=== PATIENT | male | born 1940 | race Caucasian/White ===

== ENCOUNTER → 2023-03-17 08:01 | Outpatient (REF) | payer OTHER, SELFPAY | LOC: WOUND 08:01 | PROVIDERS: ATTENDING PHYSICIAN Surgery; REFERRING PHYSICIAN Internal Medicine | DX: L97.322 Non-pressure chronic ulcer of left ankle with fat layer exposed (principal); I87.2 Venous insufficiency (chronic) (peripheral); I73.9 Peripheral vascular disease, unspecified; N18.31 Chronic kidney disease, stage 3a; J98.4 Other disorders of lung; I50.32 Chronic diastolic (congestive) heart failure; I87.8 Other specified disorders of veins; M86.672 Other chronic osteomyelitis, left ankle and foot; I12.9 Hypertensive chronic kidney disease with stage 1 through stage 4 chronic kidney disease, or unspecified chronic kidney disease; Z79.899 Other long term (current) drug therapy; Z95.2 Presence of prosthetic heart valve | CPT/HCPCS: 11042; 99202; 99204 ==

== ENCOUNTER → 2023-05-27 09:39 | Outpatient (REF) | payer OTHER, SELFPAY | LOC: WOUND 09:39 | PROVIDERS: ATTENDING PHYSICIAN Surgery; REFERRING PHYSICIAN Internal Medicine | DX: L97.322 Non-pressure chronic ulcer of left ankle with fat layer exposed (principal); I87.2 Venous insufficiency (chronic) (peripheral); S51.812A Laceration without foreign body of left forearm, initial encounter; I73.9 Peripheral vascular disease, unspecified; Z79.899 Other long term (current) drug therapy; J98.4 Other disorders of lung; I50.32 Chronic diastolic (congestive) heart failure; I87.8 Other specified disorders of veins; Z95.2 Presence of prosthetic heart valve; N18.31 Chronic kidney disease, stage 3a; M86.672 Other chronic osteomyelitis, left ankle and foot; I13.0 Hypertensive heart and chronic kidney disease with heart failure and stage 1 through stage 4 chronic kidney disease, or unspecified chronic kidney disease; X58.XXXA Exposure to other specified factors, initial encounter | CPT/HCPCS: 11042 ==

== ENCOUNTER 2023-10-13 15:43 | Inpatient (IN) | payer OTHER, SELFPAY ==
[2023-10-13] VITALS (11 sets, daily range): BP systolic 121–144; BP diastolic 58–78; BMI 27.9
[2023-10-13 12:00] LABS: % Basophils 1.2 % (0-2); % Eosinophils 1.4 % (0-6); % Immature Granulocytes 0.7 % (0-0.5); % Lymphocytes 7.2 % (20.5-51.1); % Monocytes 8.7 % (1.7-9.3); % Neutrophils 80.8 % (42.2-75.2); Absolute Basophils 0.1 10^3/uL (0-0.2); Absolute Eosinophils 0.2 10^3/uL (0-0.7); Absolute Immature Granulocytes 0.1 10^3/uL (0-0.05); Absolute Lymphocytes 0.8 10^3/uL (1.2-3.4); Absolute Monocytes 0.9 10^3/uL (0.1-0.6); Absolute Neutrophils 8.6 10^3/uL (1.4-6.5); Hematocrit 30.8 % (39.0-52.0); Hemoglobin 9.9 g/dL (13.0-18.0); Mean Corp Hgb Conc. 32.1 g/dL (33.0-37.0); Mean Corpuscular Hgb 30.1 pg (27.0-31.0); Mean Corpuscular Volume 93.6 fL (80.0-94.0); Mean Platelet Volume 9.5 fL (7.4-10.4); Nucleated Red Blood Cells % 0 % (-); Platelet Count 443 10^3/uL (130-400); Red Blood Cell Count 3.29 10^6/uL (4.70-6.10); Red Cell Dist. Width 15.9 % (11.5-14.5); White Blood Cell Count 10.7 10^3/uL (4.8-10.8)
--- NOTE | 2023-10-13 12:16 | ED.GENMED ---
History of Present Illness
General
Chief Complaint: Breathing Problem
Source: patient
Exam Limitations: none
Time Seen by Provider: 10/13/23 12:09
Nursing documentation reviewed up to this point in time: agreed with
Travel History
Have you had any contact with someone who has COVID-19?: No
Do you have any symptoms of coronavirus? Fever > 100 degrees, chills, cough, shortness of breath, sore throat, loss of taste or smell, muscle aches, or headache?: No
History of Present Illness
History of Present Illness:
83-year-old male with history of neuropathy, CHF, A-fib, not anticoagulated, HTN, mitral valve repair, GERD, hypothyroid, prostate cancer presents stating he has had gradually increasing shortness of breath over the past week, swelling in his legs,
12 pound weight gain in the past week. He upped his Lasix from 20 mg to 30 mg daily in the past 2 days. He denies chest pain. Denies abdominal pain, nausea vomiting or diarrhea.
On the way out of his car to come in here, he scraped the right lower leg on the car door causing a laceration. He is unsure of his last tetanus immunization.
Past History
Past History
ED Past Medical History: Arrthythmia (Atrial fibrillation), Cancer, CHF, GERD and Other (History of pneumonia, urgency in urination, history of prostate cancer, arthritis, degenerative joint disease, history of fractured ankle, gout); Negative CAD
ED Past Surgical History: Other (hernia, left ankle surgery, excision of benign lesion of the pancreatic tail, incisional hernia repair)
Social History
Tobacco: Non-smoker
Alcohol: None
Drug: None
Personal:
Employment: Retired
Family History
Family History: Hypertension; Negative Early CAD
Review of Systems
Review of Systems
Allergies reviewed?: Yes
All Other Systems: ROS reviewed and negative except as documented in HPI and ROS
Constitutional: Reports fatigue; Denies fever
Respiratory: Reports trouble breathing (Increasing short of breath over the past week); Denies cough
Cardiac: Denies chest pain, diaphoresis, palpitations or syncope
ABD/GI: Denies abdominal pain, nausea, vomiting or diarrhea
: Denies dysuria, frequency or difficulty voiding
Musculoskeletal: Reports edema
Skin: Reports other (Cut right lower extremity, chronic wound left lateral ankle.)
Neurological: Reports no symptoms
Phy Exam
Physical Exam
Physical Exam:
GENERAL: No acute distress. A&Ox3.
CONSTITUTIONAL: Afebrile.
EYES: Clear, conjunctivae normal
ENMT: moist mucus membranes, Pharynx nl
RESPIRATORY: Regular respirations, nonlabored, lungs w fine crackles both bases.
CARDIOVASCULAR: Regular rate and rhythm, no murmurs, no rubs.
GI: Soft, nontender, normal BS
MUSCULOSKELETAL: Moves with ease. Well perfused. Bilateral LE edema R>L. Red discoloration RLE
SKIN: Warm, dry, pink pale. Chronic stasis color changes both LE, RLE more erythematous and swollen with laceration latera mid calf. Chronic wound left lateral ankle. No drainage. Surrounding skin normal. distal n/v intact.
PSYCH: Normal mood and affect. Well kept, interactive and appropriate
NEUROLOGIC: Awake, alert and oriented. No focal neurological deficits
Scores
Heart Failure Risk
Heart Failure Risk Score: Yes
History of Stroke or TIA: No
History of intubation for respiratory distress: No
Heart rate on ED arrival >/= 110: No
SaO2 <90% on arrival on room air: No
HR >/=110 during 3min walk test (or too ill to perform test): Yes
ECG has acute ischemic changes: No
Urea >/=12mmol/L (BUN 33.6mg/dL): No
Serum CO2>/=35mmol/L: No
Troponin I or T elevated to MA Level (0.4mg/dL): Yes
NT-proBNP >/=5,000ng/L (5,000pg/ml): No
HF Risk Score: 4
Admission Status: HIGH RISK 26.1% Consider SNF treatment or admission to hospital
Course
Orders/Labs/Results
Orders:
Orders
10/13/23 11:39
Electrocardiogram (*1) Urgent
Reason for Study: Shortness of Breath
EKG- Treatment ONCE
10/13/23 11:51
Complete Blood Count/With Diff Urgent
Comprehensive Metabolic Panel Urgent
NT-proBNP Urgent
Troponin I Urgent
10/13/23 12:27
Lidocaine/Epinephrine/Tetracai [Let Topical Anesthetic Gel] 3 ml .ROUTE .STK-MED ONE
Lidocaine/Epinephrine/Tetracai [Let Topical Anesthetic Gel] 3 ml TOPICAL NOW STA
Tetanus/Diphth/Acelpertussis [Adacel] 0.5 ml IM .ONCE ONE
CR Chest - 2 Views Urgent
Comment:
Reason For Exam: SOB, hx CHF
10/13/23 12:54
Furosemide [Lasix] 40 mg IV NOW STA
10/13/23 Dinner
Cholesterol Lowering
At Your Request: Full Participation
Cholesterol Lowering: Sodium, 2 Gram
10/13/23 15:30
Admit/Transfer Patient As Directed
Co-Sign Provider:
Level of Care: Inpatient admission
Assign to:: Telemetry
Physician / Group: Gómez
Diagnosis: CHF
Reason for Telemetry: Acute Heart Failure
Date to Stop Telemetry: 10/16/23
Time to Stop Telemetry: 11:00
Reason for Hospitalization: IV diuretics
Expected length of stay greater than two midnights?: Yes
ELOS- Estimated Length of Stay in days: 3
I certify the patient meets the requirements for IP care: Yes
CARDIOLOGY CONSULT Routine
Consulting Provider: Gibson Abraham
Was physician already notified: Yes
10/13/23 15:32
Code Status As Directed
Resuscitation Status: Do not resuscitate
Reached after discussion with pt or family/Healthcare POA: Yes
10/13/23 15:33
DNR Bracelet Application ONCE
10/13/23 15:48
Troponin I Q6H
10/13/23 18:39
Heparin 5,000 units SC Q8
Trazodone [Desyrel] 50 mg PO HSPRN PRN
10/13/23 18:39
HF DIETARY CONSULT Routine
HF EDUCATOR CONSULT Routine
Comment:
WOUND/OSTOMY CONSULT Routine
Reason for Consult: left ankle wound
Activity As Directed
Activity Level: Out of Bed-Early Mobility
Intake/ Output As Directed
Frequency: Per unit guidelines
Patient Education As Directed
Type: CHF folder
Comment: give on admission. Document in Interdisciplinary Education record
Sleep Apnea Assessment by RN As Directed
Comment:
Physician Instructions:
Vital Signs As Directed
Frequency: Other
Additional Instructions:: Q12 or per unit guidelines if more frequent.
Weight As Directed
Frequency: Daily
Type of Scale: Standing Scale
Comment: Daily morning weight. If unable to stand, use balanced bed scale.
Weight As Directed
Frequency: Once
Type of Scale: Standing Scale
Comment: Upon Admission. If unable to stand, use balanced bed scale.
Pulse Ox/cont/shift [RESP] Routine
Quantity: 1
Special Instructions: Daily pulse oximetry at rest. If greater than 92% at rest also obtain pulse oximetry
while ambulating as tolerated.
Ot Eval And Treat Routine
Pt Eval And Treat Routine
Activity Level: Out of Bed-Early Mobility
DX Deep Vein Thrombosis Video Routine
10/13/23 20:00
Sulfamethox./Trimethoprim Ds [Bactrim Ds 800 mg/160 mg] 1 tablet PO BID
10/13/23 22:00
Gabapentin [Neurontin] 100 mg PO HS
10/13/23 22:11
Troponin I Q6H
10/14/23
Echo 2D MMode Color/Doppler Routine
Reason for Study: Heart Failure
Cardiology Consult: Henry Zapata
10/14/23 01:57
Basic Metabolic Panel IN AM
Cardiovascular Evaluation IN AM
Complete Blood Count/No Diff IN AM
TSH Reflex To Free T4 IN AM
10/14/23 07:00
Levothyroxine [Synthroid] 150 mcg PO DAILY AT 0700
10/14/23 08:00
Ascorbic Acid [Vitamin C] 500 mg PO DAILY
Diltiazem Extended Release [Cardizem Cd] 240 mg PO DAILY
Furosemide [Lasix] 40 mg IV DAILY
Gabapentin [Neurontin] 200 mg PO DAILY
10/15/23 06:00
Basic Metabolic Panel IN AM
10/16/23 06:00
Basic Metabolic Panel IN AM
10/16/23 11:00
DC Protocol for Telemetry ONCE
Abnormal Lab Results
10/13/23
11:51
RBC 3.29 L 10^6/uL
(4.70-6.10)
Hgb 9.9 L g/dL
(13.0-18.0)
Hct 30.8 L %
(39.0-52.0)
MCHC 32.1 L g/dL
(33.0-37.0)
RDW 15.9 H %
(11.5-14.5)
Plt Count 443 H 10^3/uL
(130-400)
Abs Immat Gran (auto) 0.1 H 10^3/uL
(0-0.05)
Absolute Neuts (auto) 8.6 H 10^3/uL
(1.4-6.5)
Absolute Lymphs (auto) 0.8 L 10^3/uL
(1.2-3.4)
Absolute Monos (auto) 0.9 H 10^3/uL
(0.1-0.6)
Immature Gran % 0.7 H %
(0-0.5)
Neutrophils % 80.8 H %
(42.2-75.2)
Lymphocytes % 7.2 L %
(20.5-51.1)
Chloride 96 L mmol/L
(98-107)
BUN 32 H mg/dl
(9-20)
Glucose 148 H mg/dl
(70-99)
Troponin I 1.680 H* ng/ml
10/13/23 11:51
10/13/23 11:51
Vital Signs
Initial and Last Documented VS:
Initial Vital Signs
Temp Pulse Resp BP Pulse Ox
97.7 F 77 18 144/66 98
10/13/23 11:36 10/13/23 11:36 10/13/23 11:36 10/13/23 11:36 10/13/23 11:36
Last Documented Vital Signs
Temp Pulse Resp BP Pulse Ox
97.7 F 77 17 128/63 94
10/14/23 15:00 10/14/23 15:00 10/14/23 15:00 10/14/23 15:00 10/14/23 15:00
Procedures
Laceration Closure
Right Lateral Calf:
Status of Wound: clean
Description of Wound Edges: sharp
Anesthesia: Topical-LET
Revision/Debridement: routine- no revision
Type of Closure: Dermabond-skin glue (reinforced with skin adhesive and steristrips, nonstick and gauze dressing applied)
MDM/Problems Addressed
MDM/Problems Addressed:
83-year-old male with history of neuropathy, CHF, A-fib, not anticoagulated, HTN, mitral valve repair, GERD, hypothyroid, prostate cancer presents stating he has had gradually increasing shortness of breath over the past week, swelling in his legs,
12 pound weight gain in the past week. He upped his Lasix from 20 mg to 30 mg daily in the past 2 days. He denies chest pain. Denies abdominal pain, nausea vomiting or diarrhea.
On the way out of his car to come in here, he scraped the right lower leg on the car door causing a laceration. He is unsure of his last tetanus immunization.
NAD, EKG:A-fib, heart rate 72.
10/13/2023 1322 PM
CBC: Hemoglobin 9.9
CMP: BUN/creat 32/1.3
Troponin 1.680
BNP 286
Would RLL cleansed with NSS, edges approximated with wound glue, reinforced with steristrips, dressing applied
L lateral ankle chronic wound cleansed with NSS, non stick dressing applied
Plan: Admit: CHF,
Hosptialist notified of admission
*Critical Care Note
Total Time (30-74mins, 75-104mins- exclusive of procedures): Not Applicable
Update Note
Update Note:
Wound was 3 cm in length.
ED Attending Note
-
Portions of this chart may have been created with voice recognition software.� Occasional wrong word or��sound alike� substitutions may have occurred due to the inherent limitations of voice recognition software.
Discharge Plan
Departure
Patient Disposition: Admit
Date of Disposition: 10/13/23
Time of Disposition: 14:32
Presentation/result/management discussed w/ accepting MD/DO: Hospitalist
Condition: Fair
Discharge Problem:
CHF (congestive heart failure), Laceration of right lower extremity
Interventions
Interventions:
*Risk Screen - Suicide Last Done: 10/13/23 12:33
*General Assessment Last Done: 10/13/23 12:33
*Neglect/Abuse Screening Last Done: 10/13/23 12:07
ED- Fall Risk Assessment Last Done: 10/13/23 12:33
*ED COVID-19 Vaccine History Last Done: 10/13/23 11:36
*Nursing Disposition Last Done: 10/13/23 18:37
ED- Cardiac Assessment Last Done: 10/13/23 13:14
ED- Pulmonary Assessment Last Done: 10/13/23 13:14
Discharge Date and Time
Discharge Date/Time: 10/13/23 18:37
[2023-10-13 12:28] LABS: ALT (SGPT) 16 U/L (0-50); AST (SGOT) 37 U/L (17-59); Albumin 3.8 g/dl (3.5-5.0); Alkaline Phosphatase 95 U/L (38-126); Blood Urea Nitrogen 32 mg/dl (9-20); Calcium 9.3 mg/dl (8.4-10.2); Carbon Dioxide 28 mmol/L (22-30); Chloride 96 mmol/L (98-107); Glucose 148 mg/dl (70-99); Potassium 4.8 mmol/L (3.5-5.1); Sodium 135 mmol/L (135-145); Total Bilirubin 0.6 mg/dl (0.2-1.3); Total Protein 7.6 g/dl (6.3-8.2); eGFR 54.17
[2023-10-13] MEDS: LET TOPICAL ANESTHETIC GEL 3 ML TOPICAL (12:36)
[2023-10-13 12:46] LABS: NT-proBNP 2860 pg/ml
[2023-10-13] MEDS: ADACEL 0.5 ML IM (13:02)
[2023-10-13] MEDS: LASIX 40 MG IV (13:02)
--- NOTE | 2023-10-13 15:33 | CON.CAR ---
Addendum entered and electronically signed by Gibson Abraham MD 10/13/23 16:34:
I saw and examined the patient.
The MARBLE RUBBER's note was reviewed and I agree with the note.
Comment: 83 y/o male with permanent AFIB (not on OAC, personal decision), Jew, hx MV repair, HTN, prior prostate cancer, hx suspected syncope with subdural hematoma ([place]), CKD, and HFpEF who is here for evaluation of SOB for 1
week with 12 lbs weight gain and worsened BLE edema. He had mild CP a few days ago that lasted a few hours, however, he tells me he is active and denies CP with exertion. His elevated troponin is concerning for possible ACS. He currently denies
wanting any sort of procedure, but would be agreeable to heparin gtt for 48 hrs.
- Heparin gtt if next troponin continues to rise, trend trop to peak
- does not want aspirin currently, reassess tomorrow
- IV lasix
Original Note:
Consultation
Consultation Request
Date/Time Consultation Requested: 10/13/23
Requesting Provider: Sophie OROZCO
Performing Provider: Sindy TOWNSEND for Dr. Abraham
Reason for Consultation: CHF
Medical History
-
Chief Complaint: SOB
History of Present Illness:
83 y/o male with permanent AFIB (not on OAC, personal decision), Jew, hx MV repair, HTN, prior prostate cancer, hx suspected syncope with subdural hematoma ([place]), CKD, and HFpEF who is here for evaluation of SOB for 1 week with 12
lbs weight gain and worsened BLE edema. He has been taking torsemide 20 mg daily. He thinks he monitors his diet, but may go over on sodium sometimes. He denies any CP at present, but did have some mild chest pressure several days ago (1.5 days).
EKG stable. Trop elevated 1.7. He is in no distress at the time of my assessment. He has been given a dose of IV lasix with good response.
Past Medical History
Past Medical History: Arrhythmias, Cancer, HTN, Valvular Disease and Other (as above)
Social History
Tobacco: Non-Smoker
Family History
Family History: Reviewed & Not Pertinent
Allergies / Home Medications
Allergy/AdvReac Type Severity Reaction Status Date / Time
No Known Allergies Allergy Verified 10/13/23 11:38
Medication Instructions Recorded Confirmed Type
ascorbic acid (vitamin C) 500 mg 500 mg PO DAILY Supplement 01/22/23 10/13/23 History
tablet (Vitamin C)
gabapentin 100 mg capsule 200 mg PO DAILY Pain 01/22/23 10/13/23 History
levothyroxine 150 mcg tablet 150 mcg PO DAILY Thyroid 01/22/23 10/13/23 History
(Synthroid)
sulfamethoxazole 800 1 tab PO BID alf 01/22/23 10/13/23 History
mg-trimethoprim 160 mg tablet
(Bactrim DS)
torsemide 20 mg tablet 20 mg PO DAILY Fluid 01/22/23 10/13/23 History
Retention/Swelling
Benefiber 1 tsp PO DAILYPRN PRN constipation 10/13/23 10/13/23 History
acetaminophen 500 mg tablet 1,000 mg PO DAILYPRN PRN mild pain 10/13/23 10/13/23 History
(Tylenol Extra Strength)
diltiazem HCl 240 mg 240 mg PO DAILY 10/13/23 10/13/23 History
tablet,extended release 24 hr
gabapentin 100 mg capsule 100 mg PO HS 10/13/23 10/13/23 History
trazodone 50 mg tablet 50 mg PO HS PRN sleep 10/13/23 10/13/23 History
Review of Systems
-
History Source: Patient
All other systems: Negative unless noted
Constitutional: Weight Gain
Respiratory: Trouble Breathing
Cardiac: Chest Pain
Musculoskeletal: Edema (moderate BLE ederma)
Skin: Other (reddened BLE's)
Physical Exam
Vital Signs
Temp Pulse Resp BP Pulse Ox
97.7 F 66 20 132/70 95
10/13/23 11:36 10/13/23 15:00 10/13/23 15:00 10/13/23 15:00 10/13/23 13:15
Lab Results
10/13/23 11:51
10/13/23 11:51
Troponin I 1.680 ng/ml H* 10/13/23 11:51
Rfq-U-Hlfoookxdvd Pept 2860 pg/ml 10/13/23 11:51
Physical Exam
General: Well Developed, Well Nourished and No Apparent Distress
HEENT: Normocephalic and Anicteric
Respiratory: Crackles (b/l bases)
Cardiac: Irregular Rhythm
Musculoskeletal: Edema (moderate BLE edema)
Skin: Warm and Dry
Neuro: AO x 3
Psych: Calm
Impression / Plan
-
Hvigv-xw-lqfeqkw HFpEF:
-IV lasix 40 mg BID, which requires intensive monitoring
-CHF education
-update echo
Elevated troponin:
-etiology unclear- recent NSTEMI (chest pain a few days ago) versus acute non-ischemic myocardial injury
-check echo
-trend to peak
-CP free now, and EKG is fine
-cath 2017 minimal non-obstructive CAD, stress test 2021 normal perfusion imaging
-patient does not want cath in my discussion with him. Also not agreeable to ASA/heparin at this time.
Permanent AFIB:
-rate-controlled
-not on OAC from personal choice
Hx MV repair:
-check echo, stable by most recent one
hx traumatic subdural after fall 2022
�
Data Reviewed
-
EKG: Tracing Personally Visualized and interpreted
Radiology: Report Reviewed by me (CXR 10/13/23: Radiographic findings highly suggestive of interstitial pulmonary edema pattern. Minimal bilateral pleural effusions.)
Medical Tests (Nuc Med, Echo etc): Report Reviewed by me (Echo: Echo 01/23/23: EF is 55-60%. Enlarged right ventricular size with normal function. Moderately to severely dilated left atrium. Severely dilated right atrium. Well-seated mitral valve ring
with mildly thickened valve leaflets and a mean gradient of 6 mmHg.Mild to moderate tricuspid regurgitation.)
Labs: Labs Reviewed by me
--- NOTE | 2023-10-13 15:37 | HPS.HSE ---
Addendum entered and electronically signed by Washington Magaña MD 10/13/23 18:58:
PT with elevated troponin to 1.9 from 1.7 on admission. d.w case with cardiology financial operations consultant Dr. Abraham who recommended starting patient on heparin gtt.
will order.
Addendum entered and electronically signed by Washington Magaña MD 10/13/23 15:55:
I saw and examined the patient.
The PHOTOGRAPHIC PROCESS ATTENDANT's note was reviewed and I agree with the note.
Comment:
83-year male past medical history of heart failure, atrial fibrillation, subdural hematoma was presenting from home with lower extremity swelling or shortness of breath. Patient stated he started taking increased dose of torsemide at home however
without any improvement in lower extremity edema. Currently denies any chest pain. States had increasing amount of urination with Lasix given in ER.
General:�Comfortable and Conversant
HEENT:�Anicteric and Moist mucous membranes
Respiratory:�Rales and Non Labored Respirations
Cardiac:�S1/S2, Irregular Rhythm, Murmur and JVD; No Tachycardia
GI:�Soft, Non Tender and Non Distended
Musculoskeletal:�No Clubbing, No Cyanosis and Other (+3 pitting edema bilateral lower ext)
Skin:�Warm, Dry and Other (Chronic left ankle wound)
Neuro:�Awake, Alert, Oriented and Nonfocal/grossly intact
A/P
Acute on chronic diastolic heart exacerbation
Await troponin
Probable atrial fibrillation
CKD stage III
Chronic anemia
Peripheral neuropathy
HYPOThyroidism
Chronic left ankle wound
Prostate cancer status post radiation
Start patient 40 mg IV Lasix
Trend troponin
Monitor on telemetry
Patient states follows with Dr. Zapata
States not being on anticoagulation as a history of subdural hematoma and has extensive discussion with his primary daytime babysitter
Continue home meds
DVT ppx-hep
Original Note:
Family Physician
-
Family Physician: Isiah Fisher
Chief Complaint
-
Shortness of breath and weight gain
History of Present Illness
Patient is an 83-year-old male past medical history of heart failure, A-fib, CKD and hypertension who presents with weight gain and shortness of breath. Patient reports he has gained about 12 pounds over the last 2 weeks. He notes increasing
shortness of breath, particular dyspnea on exertion. He reports increased lower extremity edema. He notes he did try doubling his torsemide dose at home without improvement in his symptoms. He denies chest pain, palpitations or orthopnea.
Medical History
Past Medical History
Past Medical History: Reports Other
Additional Past Medical History:
Chronic HFpEF
Permanent Atrial Fibrillation
Essential Hypertension
CKD Stage III
Chronic Anemia
Peripheral Neuropathy
Hypothyroidism
Osteoarthritis
Prostate CA s/p Radiation
Chronic Left Ankle Wound
Gout
Past Surgical History: Reports Other
Additional Past Surgical History:
Left Foot Tendon Repair
Partial Pancreatectomy
Splenectomy
Left Inguinal Hernia Repair
Incisional Hernia Repair
Tonsillectomy
Mitral Valve Repair
Left Total Knee Arthroscopy
Right Total Knee Replacement
Social History
Tobacco: Former Smoker (Quit about 50 years ago)
Family History
Family History: Other (Mother and Brother: Tiffanie's Disease; Father: Prostate CA)
Allergies / Home Medications
Allergies reflects when Allergies were last updated in [employer].
Home Medications with original date entered in [employer]
Allergy/Medication List:
Allergies
Allergy/AdvReac Type Severity Reaction Status Date / Time
No Known Allergies Allergy Verified 10/13/23 11:38
Home Medications
ascorbic acid (vitamin C) 500 mg tablet (Vitamin C) 500 mg PO DAILY Supplement 01/22/23
gabapentin 100 mg capsule 200 mg PO DAILY Pain 01/22/23
levothyroxine 150 mcg tablet (Synthroid) 150 mcg PO DAILY Thyroid 01/22/23
sulfamethoxazole 800 mg-trimethoprim 160 mg tablet (Bactrim DS) 1 tab PO BID halfway 01/22/23
torsemide 20 mg tablet 20 mg PO DAILY Fluid Retention/Swelling 01/22/23
Benefiber 1 tsp PO DAILYPRN PRN constipation 10/13/23
acetaminophen 500 mg tablet (Tylenol Extra Strength) 1,000 mg PO DAILYPRN PRN mild pain 10/13/23
diltiazem HCl 240 mg tablet,extended release 24 hr 240 mg PO DAILY 10/13/23
gabapentin 100 mg capsule 100 mg PO HS 10/13/23
trazodone 50 mg tablet 50 mg PO HS PRN sleep 10/13/23
Review of Systems
-
A 12 point ROS was completed and negative except as noted: Yes
Constitutional: Denies Fever or Chills
Respiratory: Denies Cough or Trouble Breathing
Cardiac: Denies Chest Pain or Palpitations
Physical Exam
Vital Signs
Vital Signs
Temp Pulse Resp BP Pulse Ox
97.7 F 66 20 132/70 95
10/13/23 11:36 10/13/23 15:00 10/13/23 15:00 10/13/23 15:00 10/13/23 13:15
Physical Exam
General: Comfortable and Conversant
HEENT: Anicteric and Moist mucous membranes
Respiratory: Rales and Non Labored Respirations
Cardiac: S1/S2, Irregular Rhythm, Murmur and JVD; No Tachycardia
GI: Soft, Non Tender and Non Distended
Rectal: Deferred by Provider
Musculoskeletal: No Clubbing, No Cyanosis and Other (+3 pitting edema bilateral lower ext)
Skin: Warm, Dry and Other (Chronic left ankle wound)
Neuro: Awake, Alert, Oriented and Nonfocal/grossly intact
Laboratory Results
-
10/13/23 11:51
10/13/23 11:51
Laboratory Results
Total Bilirubin 0.6 mg/dl (0.2-1.3) 10/13/23 11:51
AST 37 U/L (17-59) 10/13/23 11:51
ALT 16 U/L (0-50) 10/13/23 11:51
Alkaline Phosphatase 95 U/L (38-126) 10/13/23 11:51
Troponin I 1.680 ng/ml H* 10/13/23 11:51
Data Reviewed
-
Diagnostic Radiology: Report Reviewed by me
Lab Data: Labs Reviewed by me
Impression/Plan
-
Acute on Chronic HFpEF
-Consult Cardiology
-Continue Lasix 40mg IB Daily
-Check Echocardiogram
-Monitor Is&Os and Daily Weights
Elevated Troponin
-Consult Cardiology
-Continue to trend troponin
Permanent Atrial Fibrillation
-Continue diltiazem for rate control
-Patient is not on anticoagulation as outpatient
CKD Stage III
-Monitor creatinine closely while on diuretics
Chronic Anemia
-Hgb slightly lower than baseline
-Check iron, ferritin, tibc, folate vit b12
Peripheral Neuropathy
-Continue gabapentin
Hypothyroidism
-Continue levothyroxine
Chronic Left Ankle Wound
-Continue Bactrim as prior to admission
-Consult Wound Care
Prostate CA s/p Radiation
DVT proph: SC Heparin
Code Status: DNR
[2023-10-13 18:22] LABS: Iron 45 ug/dl (49-181)
[2023-10-13 18:32] LABS: Percent Saturation 13 % (20-50); Total Iron Binding Capacity 327 ug/dl (261-462)
--- NOTE | 2023-10-13 18:35 | PTCARENOTE ---
pt admitted from ED AO x3 LCTA B/L on 2L 02. Pt denies CP. abd soft, non-tender. +bsx4 pt reports last BM yesterday. +2 B/L LE edema. 2 wounds, 1 on each LE. Pt reports one is from today. CB in reach.
[2023-10-13 18:59] LABS: Ferritin 62.4 ng/ml (17.9-464.0)
[2023-10-13 19:13] LABS: Vitamin B12 743 pg/ml (239-931)
[2023-10-13 19:32] LABS: Hematocrit 28.3 % (39.0-52.0); Hemoglobin 9.4 g/dL (13.0-18.0); Mean Corp Hgb Conc. 33.2 g/dL (33.0-37.0); Mean Corpuscular Hgb 30.6 pg (27.0-31.0); Mean Corpuscular Volume 92.2 fL (80.0-94.0); Mean Platelet Volume 9.4 fL (7.4-10.4); Platelet Count 411 10^3/uL (130-400); Red Blood Cell Count 3.07 10^6/uL (4.70-6.10); Red Cell Dist. Width 15.9 % (11.5-14.5); White Blood Cell Count 9.2 10^3/uL (4.8-10.8)
[2023-10-13] MEDS: BACTRIM DS 800 MG/160 MG 1 TABLET PO (19:40)
[2023-10-13] MEDS: HEPARIN 4000 UNITS IV (19:40)
[2023-10-13] MEDS: HEPARIN 25000 UNITS/250 ML IV (19:40)
[2023-10-13 19:44] LABS: APTT 38.8 Sec (23.4-35.0)
[2023-10-13 20:28] LABS: Folate 10.2 ng/ml (2.76-20)
[2023-10-13] MEDS: NEURONTIN 100 MG PO (21:25)
[2023-10-14] VITALS (8 sets, daily range): BP systolic 110–142; BP diastolic 47–68; PULSE 84; O2SAT 91; BMI 28.0
[2023-10-14 02:08] LABS: Hematocrit 27.1 % (39.0-52.0); Mean Corp Hgb Conc. 33.2 g/dL (33.0-37.0); Mean Corpuscular Hgb 30.2 pg (27.0-31.0); Mean Corpuscular Volume 90.9 fL (80.0-94.0); Mean Platelet Volume 9.6 fL (7.4-10.4); Platelet Count 388 10^3/uL (130-400); Red Blood Cell Count 2.98 10^6/uL (4.70-6.10); Red Cell Dist. Width 15.9 % (11.5-14.5); White Blood Cell Count 8.7 10^3/uL (4.8-10.8)
[2023-10-14 02:20] LABS: APTT 58.2 Sec (23.4-35.0)
[2023-10-14 02:36] LABS: Blood Urea Nitrogen 30 mg/dl (9-20); Calcium 8.6 mg/dl (8.4-10.2); Carbon Dioxide 27 mmol/L (22-30); Chloride 101 mmol/L (98-107); Estimated Creatinine Clearance 52 ml/min; Glucose 88 mg/dl (70-99); HDL Cholesterol 47 mg/dl; LDL Cholesterol, Calculated 58 mg/dl; Potassium 4.6 mmol/L (3.5-5.1); Sodium 132 mmol/L (135-145); Total Cholesterol 114 mg/dl (50-199); Triglyceride 49 mg/dl (10-149); Very Low Density Lipoprotein 9 mg/dl (0-30); eGFR > 60.00
[2023-10-14 03:46] LABS: TSH Reflex To Free T4 3.23 uIU/ml (0.47-4.68)
[2023-10-14] MEDS: SYNTHROID 150 MCG PO (05:36)
[2023-10-14 08:44] LABS: APTT 77.8 Sec (23.4-35.0)
--- NOTE | 2023-10-14 08:47 | W.PN.CD ---
Today's Communication / Plan
-
stop IV heparin
continue diruetic
treamtent of anemia as directed by primary team with HF and abnormal troponin I would like to see improvment of hb - target >10.
Impression / Plan
-
Srksu-he-beosmhr HFpEF:
-IV lasix 40 mg BID, which requires intensive monitoring
-CHF education
-update echo
Elevated troponin:
- peak 1.9
- no cp since admit to suggest angina
-cath 2016 minimal non-obstructive CAD, stress test 2021 normal perfusion imaging
-patient does not want cath . discussion with Dr Abraham and then discussion iwth me today. Willcontinue with medcal therapy for
HF and presumed CAD this would include treatmentof anemia
- stop IV heparin
Permanent AFIB:
-rate-controlled
-not on OAC from personal choice. Solo is a Jehovahs witness and he also had an fall with subdural hematoma 2022 when he was not on anticoagulation. This has been reviewed as outpatient.
Hx MV repair:
-check echo, stable by most recent one
hx traumatic subdural after fall 2022
�
Physical Exam
Vital Signs/Labs
Vital Signs
Temp Pulse Resp BP Pulse Ox
98.3 F 80 20 110/60 93
10/14/23 07:58 10/14/23 07:58 10/14/23 07:58 10/14/23 07:58 10/14/23 07:58
10/13/23 10/14/23 10/15/23
06:59 06:59 06:59
Actual Weight 88.592 kg
10/14/23 01:57
10/14/23 01:57
APTT 58.2 Sec (23.4-35.0) H 10/14/23 01:57
Triglycerides 49 mg/dl (10-149) 10/14/23 01:57
LDL Cholesterol, Calc 58 mg/dl 10/14/23 01:57
VLDL Cholesterol, Calc 9 mg/dl (0-30) 10/14/23 01:57
HDL Cholesterol 47 mg/dl 10/14/23 01:57
10/13/23
11:51
Igr-R-Uneuvfsglhc Pept 2860
LAB Results
10/13/23 10/13/23 10/13/23
11:51 15:48 22:11
Troponin I 1.680 H* 1.900 H* 1.710 H*
Physical Exam
Constitutional: No acute distress
Cardiovascular: Rhythm/rate is irregular
Respiratory: Respiratory effort normal, Wheeze Absent and Rhonchi Absent
GI: Soft and Non tender
Neuro/Psych: Alert
Other: Other (mild edema)
Data Reviewed
-
Date of Service: October 14, 2023
Medical Decision Making: Reviewed Test Results and Review of Case with other Provider
Echo: Report Reviewed by me
X-Ray/CT/US/MRI/NUC/PET: Report Reviewed by me
Medical Tests (PFT, Pathology etc): Report Reviewed by me
Labs: Labs Reviewed by me
[2023-10-14] MEDS: BACTRIM DS 800 MG/160 MG 1 TABLET PO ×2 (08:56→20:52)
[2023-10-14] MEDS: NEURONTIN 200 MG PO (08:56)
[2023-10-14] MEDS: VITAMIN C 500 MG PO (08:56)
[2023-10-14] MEDS: CARDIZEM CD PO (08:58)
[2023-10-14] MEDS: LASIX 40 MG IV (08:59)
[2023-10-14] MEDS: LOW STRENGTH ASPIRIN 81 MG PO (09:21)
--- NOTE | 2023-10-14 11:20 | W.PN.HOSP.TC ---
Addendum entered and electronically signed by Washington Magaña MD 10/14/23 15:38:
Refusing LE doppler.
Original Note:
Today's Communication/Plan
-
Lasix
echo
IV iron
Assessment / Plan
Assessment / Plan
Acute on Chronic HFpEF
-Consult Cardiology
-Continue Lasix 40mg IV Daily
-Check Echocardiogram
-Monitor Is&Os and Daily Weights
NSTEMI
-Consult Cardiology
-Hep gtt was started and stopped per cards as concern for anemia.
Permanent Atrial Fibrillation
-Continue diltiazem for rate control
-Patient is not on anticoagulation as outpatient
CKD Stage III
-Monitor creatinine closely while on diuretics
Chronic Anemia with iron deficiency
Patient Sabianist with history of subdural hematoma in the past
-Hgb slightly lower than baseline
-IV iron started
-no charline luminal bleeding noted. No hematuria.
-d/w with patient about anemia work-Pt does not want any aggressive treatment-including EGD/Colonoscopy.
Peripheral Neuropathy
-Continue gabapentin
Hypothyroidism
-Continue levothyroxine
Chronic Left Ankle Wound
-Continue Bactrim as prior to admission
-Consult Wound Care
-Check LE doppler
Prostate CA s/p Radiation
DVT proph: SC Heparin
Code Status: DNR. Want to avoid aggressive work up/management. Does not want any procedures.
Anticipated Discharge: > 48 hours
Subjective/Interval History
-
Date of Service: October 14, 2023
denies blood in stools
no blood in urine noted
states of chronic anemia
Objective Data
-
Labs:
Laboratory Results
10/14/23 10/14/23
01:57 08:12
WBC 8.7
Hgb 9.0 L
Hct 27.1 L
Plt Count 388
APTT 58.2 H 77.8 H
Sodium 132 L
Potassium 4.6
Chloride 101
Carbon Dioxide 27
BUN 30 H
Creatinine 1.1
Glucose 88
Calcium 8.6
Vital Signs:
Vital Signs
Temp Pulse Resp BP Pulse Ox
98.3 F 80 20 110/60 93
10/14/23 07:58 10/14/23 08:58 10/14/23 07:58 10/14/23 08:58 10/14/23 07:58
I&O
10/13/23 10/14/23 10/15/23
06:59 06:59 06:59
Intake Total 480 / 480
Output Total 1675 / 1675
Balance -1195 / -1195
Physical Exam
-
General: Well Developed and No Apparent Distress
HEENT: Normocephalic, Atraumatic and Moist Mucous Membranes
Respiratory: Clear to Auscultation
Cardiac: Regular Rhythm and S1/S2; Negative Murmur, Rub or Gallop
GI: Soft, Nontender, Nondistended and Normal Bowel Sounds; Negative Organomegaly
Rectal: Deferred by Provider
Musculoskeletal: No Clubbing, No Cyanosis, No Edema, Edema, Right Lower Extrem and Edema, Left Lower Extrem
Skin: Negative Rash
Neuro: Awake, Alert, Oriented and Nonfocal/Grossly Intact
Psych: Calm
Data Reviewed
-
Total Time Spent with Patient (in minutes): 55
[2023-10-14] MEDS: FERRLECIT 110 MG IV (14:19)
--- NOTE | 2023-10-14 14:35 | CM ---
Alert awake oriented patient who lives alone in [facility] independent living.He is independent in driving and in activities of daily living.He uses a walker and cane. He was offered VN he declined need.He said he would set up out pt Pt [place] [facility] [place].Jodi will drive him home.
No VN hx / No SNF history, Current with outpt PT. Pt will resume
Pharmacy [facility]
PCP DR Isiah Fisher
PLAN Home Declined VN
--- NOTE | 2023-10-14 14:50 | WOUNDNOTE ---
WON RN note: Patient admitted with CHF, R lateral leg skin tear.
See H&P for complete history.
PMH: RONI, COPD, CHF, anemia, hypothyroid, anemia, falls, chronic left LE ankle wound, ankle fusion.
Wound Location and type/assessment: Patient known to service, last seen 01/23/23 for L ankle venous ulcer and R leg skin tear. Now with larger skin tear to R leg,'banged it on car door' states patient. Steri strips in place, weeping distally,
dressing stuck when removed. L lateral ankle appears slightly bigger compared to before. + palpable pedal pulse R leg, + with Doppler on L foot. Patient refuses to wear compression stockings, too uncomfortable he states. Was going to [facility] but
stopped because it was too much out of pocket expense. 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 He does all his own wound care at home he states.Wound with slough at base, No odor, small amount
serous drainage. Patient able to turn self, heels and sacrum intact.
Appetite: Good. Encouraged protein in diet.
Pressure redistribution devices in place: Advanta bed, turns easily in bed. Encouraged leg elevation when sitting.
Plan: L leg wound applied Mesalt and dry dressing. R leg adaptic and large silicone foam. Called [facility] for more Mesalt, asked nurse Luis Fernando to bring into rm. Teaching with patient regarding wound care. Will confirm orders with hospitalist. Updated nurse
Luis Fernando and care plan. Will follow as needed.
[2023-10-14] MEDS: HEPARIN 5000 UNITS SC (20:52)
[2023-10-14] MEDS: NEURONTIN 100 MG PO (20:52)
[2023-10-15 03:35] VITALS: BP 127/60
[2023-10-15 05:42] LABS: Hematocrit 28.8 % (39.0-52.0); Hemoglobin 9.6 g/dL (13.0-18.0); Mean Corp Hgb Conc. 33.3 g/dL (33.0-37.0); Mean Corpuscular Hgb 30.3 pg (27.0-31.0); Mean Corpuscular Volume 90.9 fL (80.0-94.0); Mean Platelet Volume 9.6 fL (7.4-10.4); Platelet Count 419 10^3/uL (130-400); Red Blood Cell Count 3.17 10^6/uL (4.70-6.10); Red Cell Dist. Width 15.5 % (11.5-14.5); White Blood Cell Count 9.2 10^3/uL (4.8-10.8)
[2023-10-15 06:00] VITALS: BMI 27.8
[2023-10-15 06:10] LABS: Blood Urea Nitrogen 23 mg/dl (9-20); Calcium 8.8 mg/dl (8.4-10.2); Carbon Dioxide 26 mmol/L (22-30); Chloride 99 mmol/L (98-107); Estimated Creatinine Clearance 57 ml/min; Glucose 88 mg/dl (70-99); Potassium 4.7 mmol/L (3.5-5.1); Sodium 133 mmol/L (135-145); eGFR > 60.00
[2023-10-15] MEDS: SYNTHROID 150 MCG PO (06:37)
[2023-10-15 07:00] VITALS: BP 150/80
[2023-10-15] MEDS: LOW STRENGTH ASPIRIN 81 MG PO (08:20)
[2023-10-15] MEDS: CARDIZEM CD 240 MG PO (08:20)
[2023-10-15] MEDS: NEURONTIN 200 MG PO (08:21)
[2023-10-15] MEDS: VITAMIN C 500 MG PO (08:21)
[2023-10-15] MEDS: BACTRIM DS 800 MG/160 MG 1 TABLET PO ×2 (08:21→21:05)
[2023-10-15] MEDS: LASIX 40 MG IV (08:21)
[2023-10-15] MEDS: HEPARIN 5000 UNITS SC ×2 (08:22→21:04)
--- NOTE | 2023-10-15 08:35 | W.PN.CD ---
Addendum entered and electronically signed by Darinel Alves MD 10/15/23 12:37:
I saw and examined the patient.
The TECHNICAL SERVICE ENGINEER's note was reviewed and I agree with the note.
Comment: Ideally he would be willing to stay as we are adjusting meds. Will increase rate control meds. Troponin elevation is a nonischemic myocardial injury from fast AFib and not NV.
Add Farxiga 10 mg a day if co-pay ok.
He has followup scheduled with his escort patients Dr. Zapata on Nov 13, 2023 at 1440 hrs.
Original Note:
Today's Communication / Plan
-
continue medical therapy for HFpEF, Afib and CAD.
Impression / Plan
-
Hvlgb-yo-srihanb HFpEF:
-IV Lasix 40 mg daily, which requires intensive monitoring.
-daily weights decreasing.
-CHF education, fluid/sodium restrictions.
-echo 10/14/23: EF 50-55%, Mitral gus post repair with mild to moderate MR, mild AR, moderate TR. PASP 55-60 mmHg.
�
Elevated troponin:
-peak 1.9
-no cp since admit to suggest angina
-in the setting of acute anemia and acute HFpEF.
-cath 2016 minimal non-obstructive CAD, stress test 2021 normal perfusion imaging.
-patient does not want a cath, discussed with Dr. Abraham and Dr. Zapata.
-continue medical therapy for HF, CAD, HFpEF and anemia.
-IV Heparin stopped.
Permanent AFIB:
-rate-controlled, though with elevated rates walking to the bathroom this am.
-consider increasing Cardizem or adding BB.
-not on OAC due to patient's personal choice.
-He is a Muslim and he had a fall with subdural hematoma 2022 (not on OAC).
Hx MV repair:
-stable on echo as above.
-continue medical therapy.
Traumatic subdural hematoma s/p fall 2022 - stable.
�
Subjective:
c/o feeling anxious/agitated this am.
he is frustrated with his TV not working and still being in the hospital, wants to go home.
denies cardiac complaints.
Physical Exam
Vital Signs/Labs
Vital Signs
Temp Pulse Resp BP Pulse Ox
97.4 F 91 18 150/80 91
10/15/23 07:00 10/15/23 07:00 10/15/23 07:00 10/15/23 07:00 10/15/23 07:00
10/14/23 10/15/23 10/16/23
06:59 06:59 06:59
Actual Weight 88.592 kg 87.77 kg
10/15/23 05:12
10/15/23 05:12
APTT 77.8 Sec (23.4-35.0) H 10/14/23 08:12
Triglycerides 49 mg/dl (10-149) 10/14/23 01:57
LDL Cholesterol, Calc 58 mg/dl 10/14/23 01:57
VLDL Cholesterol, Calc 9 mg/dl (0-30) 10/14/23 01:57
HDL Cholesterol 47 mg/dl 10/14/23 01:57
10/13/23
11:51
Bxq-X-Mgjgryvuqpu Pept 2860
LAB Results
10/13/23 10/13/23 10/13/23
11:51 15:48 22:11
Troponin I 1.680 H* 1.900 H* 1.710 H*
Physical Exam
Constitutional: No acute distress and Comfortable
EENT: Anicteric and Moist mucous membranes
Cardiovascular: Rhythm/rate is irregular and Pedal edema present (mild b/l LE)
Respiratory: Respiratory effort normal and Crackles Present (mild bibasilar)
GI: Soft, Non tender and Normal bowel sounds
Neuro/Psych: AO x 3
Other: Skin (warm, dry)
Data Reviewed
-
Date of Service: October 15, 2023
Medical Decision Making: External Notes and Reviewed Test Results
EKG: Tracing Personally Visualized and interpreted
Echo: Report Reviewed by me
Labs: Labs Reviewed by me
Old Records: Reviewed
--- NOTE | 2023-10-15 10:57 | W.PN.HOSP.TC ---
Today's Communication/Plan
-
IV Lasix
Patient insisting on going home
Await cardiology recs
Aspirin
Assessment / Plan
Assessment / Plan
Acute on Chronic HFpEF
-Consult Cardiology
-Continue Lasix 40mg IV Daily. Cardiology recs for p.o. diuretics on discharge? Patient wants to go home
-Echo with EF of 50 to 55%. Moderate mitral regurg. PASP 55 to 60 mmHg.
-Monitor Is&Os and Daily Weights
-Creatinine holding so far.
Elevated troponin in the setting of anemia
-Consult Cardiology. Troponin down trended.
-Hep gtt was started and stopped per cards as concern for anemia.
-Started on baby aspirin.
Permanent Atrial Fibrillation
-Continue diltiazem for rate control
-Patient is not on anticoagulation as outpatient and patient had declined anticoagulation understanding the risk of stroke which was clarified once again with me this admission
CKD Stage III
-Monitor creatinine closely while on diuretics
Chronic Anemia with iron deficiency
Patient Sikh with history of subdural hematoma in the past
-Hgb slightly lower than baseline
-IV iron started
-no charline luminal bleeding noted. No hematuria. Hemoglobin 9.6.
-d/w with patient about anemia work-Pt does not want any aggressive treatment-including EGD/Colonoscopy.
Peripheral Neuropathy
-Continue gabapentin
Hypothyroidism
-Continue levothyroxine
Chronic Left Ankle Wound
-Continue Bactrim as prior to admission
-Consult Wound Care
-Patient states her edema is chronic. Diffuse lower extremity Doppler.
Prostate CA s/p Radiation
DVT proph: SC Heparin
Code Status: DNR. Want to avoid aggressive work up/management. Does not want any procedures.
Anticipated Discharge: Today
Subjective/Interval History
-
Date of Service: October 15, 2023
Seen significant improvement in shortness of breath and lower extremity swelling
Denies any chest discomfort
denies dyspnea on exertion
Objective Data
-
Labs:
Laboratory Results
10/15/23
05:12
WBC 9.2
Hgb 9.6 L
Hct 28.8 L
Plt Count 419 H
Sodium 133 L
Potassium 4.7
Chloride 99
Carbon Dioxide 26
BUN 23 H
Creatinine 1.0
Glucose 88
Calcium 8.8
Vital Signs:
Vital Signs
Temp Pulse Resp BP Pulse Ox
97.4 F 91 18 150/80 91
10/15/23 07:00 10/15/23 07:00 10/15/23 07:00 10/15/23 07:00 10/15/23 07:00
I&O
10/14/23 10/15/23 10/16/23
06:59 06:59 06:59
Intake Total 480 / 480 1500 / 1500
Output Total 1675 / 1675 1675 / 1675
Balance -1195 / -1195 -175 / -175
Physical Exam
-
General: Well Developed and No Apparent Distress
HEENT: Normocephalic, Atraumatic and Moist Mucous Membranes
Respiratory: Clear to Auscultation
Cardiac: Regular Rhythm and S1/S2; Negative Murmur, Rub or Gallop
GI: Soft, Nontender, Nondistended and Normal Bowel Sounds; Negative Organomegaly
Rectal: Deferred by Provider
Musculoskeletal: No Clubbing, No Cyanosis, No Edema, Edema, Right Lower Extrem (Chronic erythematous venous stasis changes) and Edema, Left Lower Extrem (Chronic erythematous venous stasis changes)
Skin: Warm and Other (Right lower extremity skin sloughed off cover dressing)
Neuro: Awake, Alert, Oriented, AO x 3, No Motor Deficits and Nonfocal/Grossly Intact
Psych: Calm
[2023-10-15 11:00] VITALS: BP 125/61
[2023-10-15] MEDS: FERRLECIT 110 MG IV (13:08)
--- NOTE | 2023-10-15 14:53 | VNURNOTE ---
Home Health Liaison met with patient at 1330 to discuss [facility] nurse/therapy, visits, schedule and homebound status. Patient is agreeable and understands that visits at home will be 2-3 x per week to assess and teach medical management. Patient has a
scale and is able to log a daily weight.
[facility] brochure provided with contact information. Patient is aware that [facility] will contact him for start of care in 1-2 days after discharge from .
[facility] referral completed in [facility].
Patient goes between 2 addresses, during week and he was informed that he would need to stay at one address in order for [facility]N to follow him.
Patient is agreeable.
[2023-10-15 15:00] VITALS: BP 138/73
--- NOTE | 2023-10-15 15:40 | CM ---
Spoke with patient in his room . Offered VN for wound care .
Pt accepted VN and requested [facility] . [facility] liaison notified via TT.
MD requested Med prices . Called [facility] would not give a fall without MD calling in script. MD notified.
PLAN Home with [facility]
[2023-10-15 20:00] VITALS: BP 145/71
[2023-10-15] MEDS: NEURONTIN 100 MG PO (21:05)
[2023-10-15 23:30] VITALS: BP 122/59
[2023-10-16 03:44] VITALS: BP 124/59
[2023-10-16 05:41] VITALS: BMI 27.0
[2023-10-16] MEDS: SYNTHROID 150 MCG PO (05:48)
[2023-10-16 06:09] LABS: Blood Urea Nitrogen 24 mg/dl (9-20); Calcium 8.8 mg/dl (8.4-10.2); Carbon Dioxide 27 mmol/L (22-30); Chloride 101 mmol/L (98-107); Estimated Creatinine Clearance 57 ml/min; Glucose 86 mg/dl (70-99); Potassium 4.8 mmol/L (3.5-5.1); Sodium 131 mmol/L (135-145); eGFR > 60.00
[2023-10-16 07:00] VITALS: BP 141/65
[2023-10-16] MEDS: VITAMIN C 500 MG PO (08:36)
[2023-10-16] MEDS: BACTRIM DS 800 MG/160 MG 1 TABLET PO (08:36)
[2023-10-16] MEDS: NEURONTIN 200 MG PO (08:36)
[2023-10-16] MEDS: CARDIZEM CD 300 MG PO (08:36)
[2023-10-16] MEDS: LOW STRENGTH ASPIRIN 81 MG PO (08:36)
[2023-10-16] MEDS: FARXIGA 10 MG PO (08:37)
[2023-10-16] MEDS: LASIX 40 MG IV (08:37)
[2023-10-16] MEDS: HEPARIN 5000 UNITS SC (08:37)
--- NOTE | 2023-10-16 10:21 | W.PN.CD ---
Today's Communication / Plan
-
transition to torsemide 20mg AM, 10mg PM
cont Farxiga 10mg daily
BMP in one week
�
continue diltiazem 300mg daily
stable from cardiac perspective for discharge planning
we will arrange for follow up with us
please call us back with additional questions
Impression / Plan
-
Macan-uq-zxxppxr HFpEF: improved s/p IV lasix
-echo 10/14/23: EF 50-55%, Mitral gus post repair with mild to moderate MR, mild AR, moderate TR. PASP 55-60 mmHg.
-transition to torsemide 20mg AM, 10mg PM
-cont Farxiga 10mg daily
-BMP in one week
�
Elevated troponin:
-peak 1.9
-no cp since admit to suggest angina
-in the setting of acute anemia and acute HFpEF.
-cath 2017 minimal non-obstructive CAD, stress test 2021 normal perfusion imaging.
-patient does not want a cath, discussed with Dr. Abraham and Dr. Zapata.
-continue medical therapy for HF, CAD, HFpEF and anemia.
Permanent AFIB:
-rate: now better controlled
-continue diltiazem 300mg daily
-not on OAC due to patient's personal choice.
-He is a Oriental orthodox and he had a fall with subdural hematoma 2022 (not on OAC).
Hx MV repair:
-stable on echo as above.
-continue medical therapy.
Traumatic subdural hematoma s/p fall 2022 - stable.
�
Subjective:
SOB and edema better.
Physical Exam
Vital Signs/Labs
Vital Signs
Temp Pulse Resp BP Pulse Ox
98.0 F 63 18 141/65 96
10/16/23 07:00 10/16/23 07:00 10/16/23 07:00 10/16/23 07:00 10/16/23 07:00
10/15/23 10/16/23 10/17/23
06:59 06:59 06:59
Actual Weight 87.77 kg 85.366 kg
10/15/23 05:12
10/16/23 05:22
APTT 77.8 Sec (23.4-35.0) H 10/14/23 08:12
Triglycerides 49 mg/dl (10-149) 10/14/23 01:57
LDL Cholesterol, Calc 58 mg/dl 10/14/23 01:57
VLDL Cholesterol, Calc 9 mg/dl (0-30) 10/14/23 01:57
HDL Cholesterol 47 mg/dl 10/14/23 01:57
10/13/23
11:51
Spu-C-Ujbrrxpkepy Pept 2860
LAB Results
10/13/23 10/13/23 10/13/23
11:51 15:48 22:11
Troponin I 1.680 H* 1.900 H* 1.710 H*
Physical Exam
Constitutional: No acute distress and Comfortable
EENT: Moist mucous membranes
Cardiovascular: JVD pressure is normal, Rhythm/rate is irregular, Pedal edema present and Systolic murmur present
Respiratory: Respiratory effort normal and Lungs clear to auscul.
GI: Soft, Distention absent and Flat
Neuro/Psych: AO x 3
Data Reviewed
-
Date of Service: October 16, 2023
EKG: Other (Tele: A fib 70s-80s)
Labs: Labs Reviewed by me
--- NOTE | 2023-10-16 10:49 | W.PN.HOSP.TC ---
Today's Communication/Plan
-
dc home
op cards f/u
Assessment / Plan
Assessment / Plan
Acute on Chronic HFpEF
-Consult Cardiology
-Continue Lasix 40mg IV Daily. Cardiology recs for p.o. diuretics on discharge-cont torsemide 20mg am and add 10mg qhs
-Echo with EF of 50 to 55%. Moderate mitral regurg. PASP 55 to 60 mmHg.
-Monitor Is&Os and Daily Weights
-started on farxiga 10mg
-Creatinine holding so far.
Elevated troponin in the setting of anemia
-Consult Cardiology. Troponin down trended.
-Hep gtt was started and stopped per cards as concern for anemia.
-Started on baby aspirin.
Permanent Atrial Fibrillation
-Continue diltiazem for rate control. HR improved with increase of dose to 300mg
-Patient is not on anticoagulation as outpatient and patient had declined anticoagulation understanding the risk of stroke which was clarified once again with me this admission
CKD Stage III
-Monitor creatinine closely while on diuretics
Chronic Anemia with iron deficiency
Patient Gnosticism with history of subdural hematoma in the past
-Hgb slightly lower than baseline
-IV iron started
-no charline luminal bleeding noted. No hematuria. Hemoglobin 9.6.
-d/w with patient about anemia work-Pt does not want any aggressive treatment-including EGD/Colonoscopy.
Peripheral Neuropathy
-Continue gabapentin
Hypothyroidism
-Continue levothyroxine
Chronic Left Ankle Wound
-Continue Bactrim as prior to admission
-Consult Wound Care
-Patient states her edema is chronic. Refuse lower extremity Doppler.
Prostate CA s/p Radiation
DVT proph: SC Heparin
Code Status: DNR. Want to avoid aggressive work up/management. Does not want any procedures.
d/ with cards.
More than 30 minutes spent in discharge including
Final examination of the patient
Summarizing hospital stay
Instructions for continuing care to all relevant caregivers
Preparation of discharge records, prescriptions, and referral forms
Total time spent (in minutes): 45
Anticipated Discharge: Today
Subjective/Interval History
-
Date of Service: October 16, 2023
feeling a lot better
states edema has improved alot in legs
Objective Data
-
Labs:
Laboratory Results
10/16/23
05:22
Sodium 131 L
Potassium 4.8
Chloride 101
Carbon Dioxide 27
BUN 24 H
Creatinine 1.0
Glucose 86
Calcium 8.8
Vital Signs:
Vital Signs
Temp Pulse Resp BP Pulse Ox
98.0 F 63 18 141/65 96
10/16/23 07:00 10/16/23 07:00 10/16/23 07:00 10/16/23 07:00 10/16/23 07:00
I&O
10/15/23 10/16/23 10/17/23
06:59 06:59 06:59
Intake Total 1500 / 1500 960 / 960
Output Total 1675 / 1675 1999 / 1999
Balance -175 / -175 -1040 / -1040
Physical Exam
-
General: Well Developed and No Apparent Distress
HEENT: Normocephalic, Atraumatic and Moist Mucous Membranes
Respiratory: Clear to Auscultation
Cardiac: S1/S2 and Irregular Rhythm; Negative Murmur, Rub or Gallop
GI: Soft, Nontender, Nondistended and Normal Bowel Sounds; Negative Organomegaly
Rectal: Deferred by Provider
Musculoskeletal: No Clubbing, No Cyanosis, No Edema, Edema, Right Lower Extrem (Chronic erythematous venous stasis changes-improvement in edema ) and Edema, Left Lower Extrem (Chronic erythematous venous stasis changes-improvement in edema )
Skin: Warm and Other (Right lower extremity skin sloughed off cover dressing)
Neuro: Awake, Alert, Oriented, AO x 3, No Motor Deficits and Nonfocal/Grossly Intact
Psych: Calm
[2023-10-16 11:00] VITALS: BP 122/67
[2023-10-16] MEDS: FERRLECIT 110 MG IV (13:51)
--- NOTE | 2023-10-16 15:43 | W.DCSUMMARY ---
Discharge Summary
Discharge Data
Date of Admission: 10/13/23
Date of Discharge: 10/16/23
-
Pending Results: No
Hospital Course
83 male past medical history of chronic diastolic heart failure, A-fib, CKD, anemia with iron deficiency, Restoration, neuropathy, hypothyroidism, chronic ankle wound on antibiotics, prostate cancer status post radiation with presenting with
complaints of dyspnea and weight gain. Patient states of lower extremity edema and shortness of breath associated with weight gain at home. Patient was eval by cardiology patient started 40 mg IV Lasix. Patient underwent echocardiogram EF of 50
to 55% with moderate mitral regurgitation. Elevated troponin which seems secondary in the setting of anemia. Heparin drip was discontinued. Patient with history of atrial fibrillation and patient did not want to go on anticoagulation. Patient
listed the risk of stroke. Patient also with increased atrial fibrillation with rapid ventricular response at times. Cardiology recommended to increase Cardizem dose. Patient also with lower extremity wound and recommend to follow-up outpatient
with wound care center. Patient also with anemia and was found to have iron deficiency and received IV iron. Patient started on baby aspirin per cardiology. Patient diuretic regimen on discharge will be 20 mg of torsemide morning and 10 mg at
bedtime. Farxiga was added.
Discharge Plan
-
Patient Disposition: Home with Home Care
Discharge Diagnosis/Procedures: Acute on chronic diastolic heart failure exacerbation
Non myocardial infarction troponin elevation in the setting of anemia and heart failure exacerbation
Condition: Fair
Diet: 2 Gram Sodium and Restrict fluids to 48 oz
Activity: With assistance and As tolerated
Driving Restrictions: As prior to admission
Blood Work: BMP in 1 week via primary doctor.
Activity Restrictions/Additional Instructions:
Wound Care Instructions
L leg: clean with saline, cut to fit piece of Mesalt to wound, abd pad and susan, change daily and prn drainage.
R leg: clean with saline, adaptic and large silicone foam, change q 3 days and prn drainage.
Leg elevation when sitting
Follow up at wound care center call for an appointment.
Take torsemide 10mg at 4pm.
Instructions: *CBC Heart Failure Instructions
Referrals:
Luigi Zapata MD [Active] - 11/13/23 2:30 pm
Isiah Fisher MD [Family Provider] - in less than 1 week
Prescriptions:
New
diltiazem HCl 300 mg Capsule,Extended Release 24hr
300 mg PO DAILY 30 Days Qty: 30 0RF
aspirin [Children's Aspirin] 81 mg Tablet,Chewable
81 mg PO DAILY 30 Days Qty: 30 0RF
dapagliflozin propanediol [Farxiga] 10 mg Tablet
10 mg PO DAILY 30 Days Qty: 30 0RF
torsemide 10 mg tablet
10 mg PO HS Qty: 30 0RF
Continued
torsemide 20 mg Tablet
20 mg PO DAILY
sulfamethoxazole-trimethoprim [Bactrim DS] 800-160 mg Tablet
1 tab PO BID
ascorbic acid (vitamin C) [Vitamin C] 500 mg Tablet
500 mg PO DAILY
levothyroxine [Synthroid] 150 mcg Tablet
150 mcg PO DAILY AT 0700
gabapentin 100 mg Capsule
200 mg PO DAILY
trazodone 50 mg Tablet
50 mg PO HS PRN (Reason: sleep)
acetaminophen [Tylenol Extra Strength] 500 mg Tablet
1,000 mg PO DAILYPRN PRN (Reason: mild pain)
gabapentin 100 mg Capsule
100 mg PO HS
Benefiber powder
1 tsp PO DAILYPRN PRN (Reason: constipation)
Discontinued
diltiazem HCl 240 mg Tablet Extended Release 24 Hr
240 mg PO DAILY
Discharge Orders:
Discharge Patient (As Directed); Ordered 10/16/23
Ordered By: Washington Magaña
--- NOTE | 2023-10-17 07:58 | CM ---
patient given coupon card for [employer] called his laura goff and the took my info from the card but [employer] computer system was down and they couldn't verify coupon.patient signed imm letter.family to transport home on .patient had no
other needs.
== END 2023-10-16 15:38 | disposition home health service (06) | DRG 291 ==
LOC: 3 WEST ACU 15:43
PROVIDERS: Physician Assistant Medical; ADMITTING PHYSICIAN Hospitalist; CONSULT PHYSICIAN Internal Medicine Cardiovascular Disease; EMERGENCY PHYSICIAN Emergency Medicine; FAMILY PHYSICIAN Internal Medicine
DX: I13.0 Hypertensive heart and chronic kidney disease with heart failure and stage 1 through stage 4 chronic kidney disease, or unspecified chronic kidney disease (principal); I50.33 Acute on chronic diastolic (congestive) heart failure; I48.21 Permanent atrial fibrillation; I5A Non-ischemic myocardial injury (non-traumatic); N18.30 Chronic kidney disease, stage 3 unspecified; D50.9 Iron deficiency anemia, unspecified; G62.9 Polyneuropathy, unspecified; E03.9 Hypothyroidism, unspecified; C61 Malignant neoplasm of prostate; Z66 Do not resuscitate
CPT/HCPCS: 12002; 71046; 80048; 80053; 80061; 82607; 82728; 82746; 83540; 83550; 83880; 84443; 84484; 85025; 85027; 85730; 90471; 90715; 93005; 93306; 96374; 97162; 97166; 97530; 99285; J2916

== ENCOUNTER 2024-12-27 09:04 | Emergency (ER) | payer OTHER, SELFPAY ==
[2024-12-27 09:08] VITALS: BP 150/73
--- NOTE | 2024-12-27 10:00 | ED.GENMED ---
History of Present Illness
General
Chief Complaint: Back Pain
Time Seen by Provider: 12/27/24 10:00
History of Present Illness
History of Present Illness:
TIME OF INITIAL ENCOUNTER: 10:15 AM
HPI: The patient presents with increasing low back pain bilaterally for the past few weeks. There was a fall recently as well but he is unsure if the pain was present before the fall. The pain does not radiate into the legs. No bowel or bladder
incontinence or retention. There was some pain in the ribs but that is overall improving. He normally alternates using a cane and a walker. He has been on Tylenol which does not help. He has been on gabapentin which does not help.
EXAM:
GENERAL: Well appearing in no distress
HEENT: Moist oral mucosa
NEUROLOGIC: Excellent strength all extremities, no obvious coordination deficits
PSYCHIATRIC: Appropriate mental status, normal insight and judgement
EXTREMITIES: Nontender, no edema, moves all extremities equally
SKIN: No rash, no lesions
NUMBER AND COMPLEXITY OF PROBLEMS ADDRESSED AT THE ENCOUNTER
� Chronic conditions affecting care: A-fib, high blood pressure, neuropathy
� Acute Exacerbation and/or Progression of Chronic Illness: This is an acute problem
� Differential Diagnosis includes: Progression of neuropathy, spinal stenosis, lumbar spine fracture, metastatic disease (history of prostate and skin cancer)
AMOUNT AND/OR COMPLEXITY OF DATA TO BE REVIEWED AND ANALYZED
� I performed an independent evaluation of and my interpretation is:
EKG:
CT: CT imaging reviewed and I agree with radiologist interpretation of superior endplate fracture at L1 along with the elevated degenerative changes
X-rays:
Laboratory Studies:
Other:
� Review of other/old records: I reviewed records, the patient was admitted here over a year ago with congestive heart failure.
� Clinical information was obtained by an independent historian: I spoke to the patient's adoptive daughter at bedside
� Prescriptions/Medications Considered but not given:
� Further testing considered but not performed:
RISK OF COMPLICATIONS AND/OR MORBIDITY OR MORTALITY OF PATIENT MANAGEMENT
� Social determinants of health affecting care: Lives at home, uses a cane/walker
� Discussion with other providers: I notified Dr. Chaparro who states that the patient could see Dr. Thomson or other spine doctor as outpatient.
� Escalation of care including admission/observation vs risk of discharge considered: Given the patient's advanced age with history of malignancy along with increasing gait dysfunction with recent fall, CT imaging obtained
ANY OTHER UPDATES:
Symptoms have been ongoing for weeks, will try outpatient management with prescription for narcotic analgesia as patient states the Tylenol and gabapentin has not helped. To follow-up with spine with [facility] orthopedics.
Past History
Past History
ED Past Medical History: Arrthythmia (Atrial fibrillation), Cancer, CHF, GERD and Other (History of pneumonia, urgency in urination, history of prostate cancer, arthritis, degenerative joint disease, history of fractured ankle, gout); Negative CAD
ED Past Surgical History: Other (hernia, left ankle surgery, excision of benign lesion of the pancreatic tail, incisional hernia repair)
Social History
Tobacco: Non-smoker
Alcohol: None
Drug: None
Personal:
Employment: Retired
Family History
Family History: Hypertension; Negative Early CAD
Phy Exam
Physical Exam
Physical Exam:
See HPI
Course
Orders/Labs/Results
Orders:
Orders
12/27/24 10:14
CT Lumbar Spine W/o Iv Contras Urgent
Comment:
Reason For Exam: low back pain fall
Vital Signs
Initial and Last Documented VS:
Initial Vital Signs
Temp Pulse Resp BP Pulse Ox
36.6 C 80 16 150/73 96
12/27/24 09:08 12/27/24 09:08 12/27/24 09:08 12/27/24 09:08 12/27/24 09:08
Last Documented Vital Signs
Temp Pulse Resp BP Pulse Ox
36.6 C 66 16 137/56 99
12/27/24 09:08 12/27/24 12:02 12/27/24 12:02 12/27/24 12:02 12/27/24 12:02
*Critical Care Note
Total Time (30-74mins, 75-104mins- exclusive of procedures): Not Applicable
ED Attending Note
-
Portions of this chart may have been created with voice recognition software.� Occasional wrong word or��sound alike� substitutions may have occurred due to the inherent limitations of voice recognition software.
Discharge Plan
Departure
Patient Disposition: Home (Routine Discharge)
Date of Disposition: 12/27/24
Time of Disposition: 12:51
Patient with high blood pressure during this ER visit?: Yes
Discharge Problem:
Fracture of lumbar spine
Instructions: Vertebral compression fracture, Low Back Pain (DC), BLOOD PRESSURE
Prescriptions:
New
oxycodone-acetaminophen [Percocet] 5-325 mg tablet
1 tab PO Q8H PRN (Reason: Pain) Qty: 10 0RF
No Action
torsemide 20 mg Tablet
20 mg PO DAILY
sulfamethoxazole-trimethoprim [Bactrim DS] 800-160 mg Tablet
1 tab PO BID
ascorbic acid (vitamin C) [Vitamin C] 500 mg Tablet
500 mg PO DAILY
levothyroxine [Synthroid] 150 mcg Tablet
150 mcg PO DAILY AT 0700
gabapentin 100 mg Capsule
200 mg PO DAILY
trazodone 50 mg Tablet
50 mg PO HS PRN (Reason: sleep)
acetaminophen [Tylenol Extra Strength] 500 mg Tablet
1,000 mg PO DAILYPRN PRN (Reason: mild pain)
gabapentin 100 mg Capsule
100 mg PO HS
Benefiber powder
1 tsp PO DAILYPRN PRN (Reason: constipation)
diltiazem HCl 300 mg Capsule,Extended Release 24hr
300 mg PO DAILY 30 Days Qty: 30 0RF
aspirin [Children's Aspirin] 81 mg Tablet,Chewable
81 mg PO DAILY 30 Days Qty: 30 0RF
dapagliflozin propanediol [Farxiga] 10 mg Tablet
10 mg PO DAILY 30 Days Qty: 30 0RF
torsemide 10 mg tablet
10 mg PO HS Qty: 30 0RF
Referrals:
Jose Thomson, [Non-Admitting Privileges] - Next open appointment
Isiah Fisher MD [Family Provider] -
Activity Restrictions/Additional Instructions:
The CAT scan shows a superior endplate compression fracture involving L1, which is likely acute to subacute, fracture involving the left lateral spondylosis at the left side of the T12-L1 disc space, moderate to severe b/l foraminal narrowing. I
recommend that you follow-up with [facility] orthopedics such as Dr. Thomson. I am sending a prescription for Percocet to your pharmacy to help with the pain but try to limit the use as it has high addiction potential and causes sedation. If you
take Percocet, I recommend something like MiraLAX to help prevent constipation.
Interventions
Interventions:
*Risk Screen - Suicide Last Done: 12/27/24 09:10
*General Assessment Last Done: 12/27/24 10:20
*Neglect/Abuse Screening Last Done: 12/27/24 09:10
*ED- Fall Risk Assessment Last Done: 12/27/24 10:20
*ED COVID-19 Vaccine History Last Done: 12/27/24 10:20
ED-Musculoskeletal Assessment Last Done: 12/27/24 10:21
Discharge Date and Time
Print Language: IRISH
--- NOTE | 2024-12-27 10:10 | EDRN ---
Dr. Rodriguez in to see pt.
[2024-12-27 10:31] VITALS: BMI 26.1
[2024-12-27 10:35] VITALS: BP 129/60
[2024-12-27 12:02] VITALS: BP 137/56
--- NOTE | 2024-12-27 12:48 | EDRN ---
Dr. Rodriguez in room w/pt at this time.
[2024-12-27 13:11] VITALS: BP 138/58
== END 2024-12-27 13:16 | disposition home or self-care (01) ==
LOC: EMR 09:04
PROVIDERS: EMERGENCY PHYSICIAN Emergency Medicine; FAMILY PHYSICIAN Internal Medicine
DX: S32.019A Unspecified fracture of first lumbar vertebra, initial encounter for closed fracture (principal); R07.81 Pleurodynia; W19.XXXA Unspecified fall, initial encounter; I48.91 Unspecified atrial fibrillation; I11.0 Hypertensive heart disease with heart failure; I50.9 Heart failure, unspecified; M48.061 Spinal stenosis, lumbar region without neurogenic claudication; G62.9 Polyneuropathy, unspecified; K21.9 Gastro-esophageal reflux disease without esophagitis; M19.90 Unspecified osteoarthritis, unspecified site; M10.9 Gout, unspecified; Z85.46 Personal history of malignant neoplasm of prostate; Z85.828 Personal history of other malignant neoplasm of skin; Z87.01 Personal history of pneumonia (recurrent)
CPT/HCPCS: 99284; 72131

== ENCOUNTER → 2025-06-16 11:25 | Outpatient (REF) | payer OTHER, SELFPAY | LOC: RAD 11:25 | PROVIDERS: ATTENDING PHYSICIAN Student in an Organized Health Care Education/Training Program | DX: I48.21 Permanent atrial fibrillation (principal) | CPT/HCPCS: 75572; Q9967 ==

== ENCOUNTER 2025-07-19 05:53 | Inpatient (IN) | payer OTHER, SELFPAY ==
[2025-07-05 10:41] VITALS: BMI 27.7
[2025-07-05 11:10] LABS: Hematocrit 36.2 % (39.0-52.0); Hemoglobin 11.9 g/dL (13.0-18.0); Mean Corp Hgb Conc. 32.9 g/dL (33.0-37.0); Mean Corpuscular Volume 98.6 fL (80.0-94.0); Nucleated Red Blood Cells % 0 % (-); Platelet Count 300 10^3/uL (130-400); Red Cell Dist. Width 15.3 % (11.5-14.5)
[2025-07-05 11:14] LABS: INR 0.99; PT 13.4 Sec (11.4-14.6)
[2025-07-05 11:36] LABS: ALT (SGPT) 24 U/L (0-50); AST (SGOT) 29 U/L (17-59); Albumin 4.2 g/dl (3.5-5.0); Alkaline Phosphatase 89 U/L (38-126); Blood Urea Nitrogen 32 mg/dl (9-20); Calcium 9.0 mg/dl (8.4-10.2); Carbon Dioxide 32 mmol/L (22-30); Chloride 95 mmol/L (98-107); Estimated Creatinine Clearance 45 ml/min; Glucose 103 mg/dl (70-99); Potassium 4.5 mmol/L (3.5-5.1); Sodium 131 mmol/L (135-145); Total Protein 6.6 g/dl (6.3-8.2); eGFR > 60.00
[2025-07-19] VITALS (11 sets, daily range): BP systolic 110–145; BP diastolic 53–97
[2025-07-19 08:56] LABS: ACT-LR - POC 285 Seconds (116-155)
--- NOTE | 2025-07-19 09:13 | WATCHMAN.MD ---
Watchman Implant
-
Watchman MAKENZIE occlusion device implantation:
Mr. Haynes is an 84 yrs old gentleman with recurrent falls and bleeds and advised to stop anticoagulation therapy is here for Watchman implantation.
Date of Procedure:
07/19/25
Indications:
Recurrent falls and bleeding with anticoagulation therapy for stroke prevention
Pre-Operative Diagnosis:
Atrial fibrillation with recurrent falls and bleeding
Post-Operative Diagnosis:
Atrial fibrillation with recurrent falls and bleeding
Procedure Performed:
Left atrial appendage occlusion with Watchman implantation (31 mm Watchman FLX Pro left atrial appendage closure device)
Performing Physicians:
LUIS ALFREDO: Tammie Isidro M.D.
Transseptal paper folding machine operator: Umesh Rosas MD
Implanter: Yasir Roman MD.
Anesthesia:
See anesthesia records
Detailed Description of the Procedure:
Written informed consent was obtained from the patient after a full explanation of the risks and benefits of the procedure including the risks of sedation and anesthesia.
The patient was brought to the electrophysiology laboratory in stable condition in fasting state. Continuous electrocardiographic and hemodynamic monitoring was initiated.
The initial rhythm was atrial fibrillation.
The procedure site was meticulously prepared with surgical scrub and allowed to dry with no pooling. Sterile draping was applied to cover the procedure site. The image intensifier was draped with sterile bag and positioned over the patient. After
infusion of local anesthetic, vascular access was obtained under ultrasound guidance and sheaths were placed over guide wire as detailed below.
Sheath and Catheter Placement:
In the right femoral vein, an 8-Guinean sheath was placed for Watchman placement procedure.
Sheaths:
Watchman delivery sheath upgraded from 8Fr sheath.
Catheters:
Watchman catheter
Trans-esophageal Echocardiography:
No thrombus noted in the left atrium or left atrial appendage. The MAKENZIE was imaged and the dimensions were confirmed. Please see separate report for that.
Trans-septal Puncture:
Heparin was initiated and infused to maintain appropriate ACT.
A VersaCross RF pigtail guidewire was advanced through the 8-Guinean sheath in the right femoral vein into the superior vena cava under fluoroscopic, LUIS ALFREDO guidance. The 8Fr was upgraded the Watchman sheath and was advanced into the superior vena cava
over the guide wire. A transseptal VersaCross RF pigtail via Faradrive connect system was utilized to perform the trans-septal puncture. The apparatus was withdrawn until it was in contact with the fossa ovalis. The position was adjusted based on
fluoroscopy and ultrasound images from LUIS ALFREDO. Under fluoroscopic, hemodynamic and LUIS ALFREDO ultrasound guidance, left atrium was cannulated by applying the radiofrequency energy. The right atrial and left atrial pressure was monitored. A guide wire was
placed and was advanced into the left superior pulmonary vein. Both the sheath and the dilator was advanced into the left atrium. The dilator was withdrawn. Blood was aspirated from the sheath and arterial blood confirmed. The sheath was flushed.
Saline injection noted into the left atrium on LUIS ALFREDO. The LA pressure was recorded. The saline injection was noted in the LA on the LUIS ALFREDO. A curved pig tail was advanced over the guide wire into the left atrium and the wire was removed.
Left atrial appendage atriography:
The pigtail was advanced into the MAKENZIE and was confirmed on fluoroscopy and LUIS ALFREDO. The contrast was injected and the MAKENZIE shape was recorded in RUIZ /Caudal view (11/17 degrees). The size of the MAKENZIE was again checked and confirmed reviewing the LUIS ALFREDO and
the fluoroscopy along with previously obtained LUIS ALFREDO images.
Watchman Deployment:
The Watchman delivery sheath was advanced into the MAKENZIE over the pigtail till the right marker was at the location of the orifice line marked on the screen. The pigtail was removed and the Watchman delivery system was advanced through the sheath into
the MAKENZIE till it was aligned with the outer sheath marker inside the MAKENZIE. The watchman sheath was clicked with the outer sheath. Once acceptable location achieved, the outer sheath was pulled back keeping the device steady at the MAKENZIE location till a
ball of the device was formed under fluoroscopic guidance. The whole system was advanced further into the MAKENZIE till adequate depth is achieved into the MAKENZIE. The MAKENZIE occluder was deployed and expanded adequately anchoring to the MAKENZIE. The device was
kept anchored with stable pressure to that location for 10 seconds.
The watchman needed to be recaptured and adjusted and was redeployed till the adequate expansion and occlusion of the MAKENZIE noted.
The LUIS ALFREDO image confirmed adequate expansion. The tug test was done that showed the device is anchored well and is not able to come out. The compression was 17% and 22% on the three sides. There was no significant leak noted on the Doppler via LUIS ALFREDO.
The device was deployed by unscrewing the Watchman device and releasing from the connecting wire. The wire was pulled back into the sheath and the sheath was pulled out of the LA.
Implanted device:
WATCHMAN FLX Pro � 31mm
Procedure End
LUIS ALFREDO study was done again that showed no epicardial accumulation that was unchanged from earlier. A repeated images showed no change in the pericardial space. No complications noted.
Following the completion of the deployment, catheters were removed. Protamine 40 mg was given at the end of the procedure and ACT was checked repeatedly. The sheath was removed and hemostasis achieved with Fig of 8 suture and manual compression
after acceptable ACT is achieved.
Left atrial Pressure:
Mean LA pressure was 12mmHg
Estimated Blood loss:
10 cc
Specimens Removed:
None.
Implants / Devices:
None
Urine output:
None
Packs / Drains/ Tubes:
None
Instrument / Sponge Count Correct:
Yes
Complications of the Procedure:
None
Condition of Patient at Time of Transfer:
Hemodynamically stable with no neurological or vascular compromise.
Summary:
Successful implantation of the left atrial occlusion device (WATCHMAN FLX Pro� 31mm)
Post procedure Plan for anticoagulation:
Continue Eliquis 5 mg BID for 3 months.
In 3 months, based on LUIS ALFREDO, will plan to discontinue Eliquis and start ASA 81 mg indefinitely.
[2025-07-19 09:15] LABS: ACT-LR - POC 364 Seconds (116-155)
--- NOTE | 2025-07-19 10:05 | PTCARENOTE ---
recieved patient from EP lab into recovery room at 0925, pt turned on side to assess skin and listen to lungs, right upper scapula area with large ecchymotic area where defid pad was removed at end of procedure, area opened and oozing blood
measuring [id number]. Tatyana Faye BRAND RECORDER in to see patient. Cleansed with sterile saline and a wet to dry dressing placed at 0930. Wound care nurse up to bedside at 1000 site redressed by broadcast supervisor. Pt denies any pain. WIll monitor and educate
patient for home care of the site.
--- NOTE | 2025-07-19 10:44 | ITS.CL.PN ---
Substation Electrician Supervisor - Procedure Note
Procedure
Procedure Note:
WATCHMAN LEFT ATRIAL APPENDAGE OCCLUSION REPORT
Date of Procedure: 07/19/2025
Referring: Dr. Luigi Zapata
Indication: Atrial fibrillation with high bleeding risk and high stroke risk
Operators: Umesh Rosas MD, PhD (interventional cardiology); Yasir Roman MD (electrophysiology); Tammie Isidro DO (cardiac imaging)
Anesthesia: general anesthesia provided by the anesthesia staff
PROCEDURE: left atrial appendage occlusion with a 31 mm Watchman FLX
ACCESS:
1. 14F right common femoral vein (closure: figure of eight stitch) - Ultrasound was utilized for vascular access. The vessel was visualized under ultrasound and noted to be patent. An image of the vessel was stored permanently in the patient's
medical record. Under direct ultrasound guidance, vascular access was obtained using a modified Seldinger technique and a 8F Lithuanian sheath was placed.
HEMODYNAMIC DATA
LA 12 mmHg
PROCEDURE NARRATIVE:
The patient was intubated and sedated by anesthesiology and then prepped and draped in standard sterile fashion. A LUIS ALFREDO probe was placed by cardiology and imaging performed demonstrating no left atrial appendage thrombus and no pericardial effusion.
Under ultrasound guidance, the right femoral vein was accessed by Dr. Rosas with an 8F sheath placed. Heparin was administered to achieve ACT>300.
The 8F sheath was exchanged over a [employer] RF wire for the Watchman double curve sheath which was advanced to the SVC. The Watchman sheath was then pulled back under fluoroscopic and echo guidance until an appropriate inferior and posterior position
on the septum was achieved. During brief RF application, the wire was advanced through the interatrial septum into the left atrium. The wire was placed in the left upper pulmonary vein as confirmed by fluoroscopy and LUIS ALFREDO. The dilator and sheath
easily tracked across the septum allowing placement of the sheath in the left atrium. Left atrial pressure was measured at 12 mmHg.
A 5F pigtail catheter was advanced through the sheath and placed in the left atrial appendage, and an appendage gram was performed demonstrating anatomy suitable for a 31 mm Watchman FLX device. The device was prepped on the back table, the pigtail
catheter removed, and the device delivered via the sheath to the left atrial appendage by Dr. Roman. The device was deployed slowly under continuous fluoroscopic and LUIS ALFREDO visualization. After deployment, LUIS ALFREDO imaging was performed to assess PASS
criteria. The device demonstrated excellent positioning, anchor stability on tug test, appropriate sizing with 19-23% compression, and appropriate seal with no leak at 0, 45, 90, or 135 degrees. Given PASS criteria were met, the device was then
released.
The delivery system retracted back into the sheath and removed from the body. The sheath was retracted into the right atrium with LUIS ALFREDO demonstrating no significant R-L shunt or pericardial effusion. The sheath was removed and the venotomy closed with
[id number] knot. Protamine 40 mg was given. The patient was extubated and tolerated the procedure well.
CONCLUSIONS
1. transseptal puncture with LUIS ALFREDO guidance
2. successful deployment of a 31 mm Watchman FLX device under fluoroscopic and LUIS ALFREDO guidance
RECOMMENDATIONS:
1. anticoagulation with Eliquis 5 mg BID
2. repeat LUIS ALFREDO in 3 months
Copy to: Dr. Luigi Zapata MD (civil structural engineer); Jackson Jaeger NP (PCP)
Signed: Umesh Rosas MD, PhD
--- NOTE | 2025-07-19 11:00 | CM ---
spoke to pt in field laborer, was asked to set up dvvn for skin tear secondary to defib pads. he is agreeable, referral faxed.
--- NOTE | 2025-07-19 11:19 | WOUNDNOTE ---
MID UPPER BACK
--- NOTE | 2025-07-19 11:25 | WOUNDNOTE ---
PRADEEP RN note: Patient admitted for cardiac catheterization done today.
See H&P for complete history.
PMH: RONI, COPD, CHF, anemia, hypothyroid, anemia, falls, chronic left LE ankle wound, ankle fusion.
Wound Location and type/assessment: Patient known to service, last seen 10/14/23 for L lateral ankle venous ulcer. Compared to last seen wound smaller and pillowcase cleaner, patient using honey gel dressing at home. Asked to see patient for new skin tear on
mid upper back from removal of defibrillator pad. Partial thickness opening, red base. Surrounding skin and front of chest with intact purple discolored skin. Turned patient with assist of nurse, Sacrum and heels are intact.
Appetite: Good.
Pressure redistribution devices in place: On stretcher in bay 9 can be on Accumax bed. Encourage leg elevation when sitting.
Plan: L leg lateral ankle and mid upper back dressings changed using adaptic and silicone foam. Instructed patient to continue honey gel dressing to L leg wound when goes home. Recommend moisturize discolored skin with Aquaphor daily. Confirmed
wound care orders with PATIENT CARE ASSISTANT at bedside. Updated nurse and care plan. Will follow as needed.
--- NOTE | 2025-07-19 14:10 | W.DS.TRANS ---
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
-
Discharge Instructions:
Discharge Diagnosis/Procedures Atrial fibrillation post Watchman
Diet Low Cholesterol,Low Sodium
Driving Restrictions No driving for 24 hours
Others Tests A follow up LUIS ALFREDO has been scheduled for you at
[facility] with
Susana on 10/18/2025. His office will contact
you with instructions. You will receive a call
the day before with arrival time.
Instructions:
Stand-Alone Forms: DC Instructions- Cath/EP Lab
Changes to Home Medications: No
Discharge Medications:
DC Medications w/original date entered in [employer]
gabapentin 100 mg capsule 200 mg PO DAILY Pain 01/22/23
levothyroxine 150 mcg tablet (Synthroid) 150 mcg PO DAILY AT 0700 Thyroid 01/22/23
sulfamethoxazole 800 mg-trimethoprim 160 mg tablet (Bactrim DS) 1 tab PO BID emt intermediate prophylaxis 01/22/23
torsemide 20 mg tablet 20 mg PO DAILY Fluid Retention/Swelling 01/22/23
acetaminophen 500 mg tablet (Tylenol Extra Strength) 1,000 mg PO DAILYPRN PRN mild pain 10/13/23
gabapentin 100 mg capsule 100 mg PO HS Pain 10/13/23
trazodone 50 mg tablet 50 mg PO HS PRN sleep 10/13/23
dapagliflozin propanediol 10 mg tablet (Farxiga) 10 mg PO DAILY 30 days #30 tabs 10/15/23
diltiazem HCl 300 mg capsule,extended release 24 hr 300 mg PO DAILY 30 days #30 caps 10/15/23
apixaban 5 mg tablet (Eliquis) 5 mg PO BID 06/30/25
torsemide 10 mg tablet 10 mg PO QPM 06/30/25
atorvastatin 40 mg tablet 40 mg PO HS 07/19/25
Home Medication Changes
Pending Results: No
== END 2025-07-19 15:00 | disposition home or self-care (01) | DRG 274 ==
LOC: CATH-IN 05:53
PROVIDERS: Internal Medicine Cardiovascular Disease; ADMITTING PHYSICIAN Student in an Organized Health Care Education/Training Program
PROC: B24BZZ4 Ultrasonography of Heart with Aorta, Transesophageal (ICD-10-PCS; 2025-07-19)
PROC: 02L73DK Occlusion of Left Atrial Appendage with Intraluminal Device, Percutaneous Approach (ICD-10-PCS; 2025-07-19)
DX: I48.21 Permanent atrial fibrillation (principal); Z00.6 Encounter for examination for normal comparison and control in clinical research program; I70.0 Atherosclerosis of aorta; J44.9 Chronic obstructive pulmonary disease, unspecified; Z79.01 Long term (current) use of anticoagulants; Z87.891 Personal history of nicotine dependence
CPT/HCPCS: 33340; 36415; 80053; 85025; 85347; 85610; 86850; 86900; 86901; 93005; 93355; C1769; C1892; C1894; Q9967